=== PATIENT | female | born 1975 | race African-American/Black ===

== ENCOUNTER 2017-03-15 15:55 | Emergency (ER) | payer OTHER, MEDICAID ==
[~2017-03-15] VITALS: Ht 167.6 cm; Wt 69.0 kg
[2017-03-15] MEDS ORDERED: FENTANYL CITRATE/PF 50MCG/ML 2ML VIAL IV ONE (19:00)
[2017-03-15] MEDS ORDERED: SODIUM CHLORIDE 0.9% 1,000 ML IV ONE (19:00)
[2017-03-15] MEDS ORDERED: ONDANSETRON HCL 4MG/2ML VIAL IV STA (19:00)
[2017-03-15 20:22] LABS: BASOPHILS % 0.3 % (0.0-2.0); EOSINOPHILS % 0.1 % (0.0-5.0); HEMATOCRIT. 40.4 % (36.0-48.0); HEMOGLOBIN. 13.6 g/dL (12.0-16.0); LYMPHOCYTES % 57.1 % (20.0-50.0); MEAN CORPUSCULAR HEMOGLOBIN 31.1 pg (28.0-32.0); MEAN CORPUSCULAR VOLUME 92.5 fL (81.0-99.0); MEAN PLATELET VOLUME 7.3 fl (7.4-10.4); MONOCYTES % 9.8 % (2.0-8.0); NEUTROPHILS % 32.7 % (40.0-76.0); PLATELET 317 x1000/uL (130-400); RED BLOOD CELL COUNT 4.37 mill/uL (4.2-5.4); RED CELL DISTRIBUTION WIDTH 15.8 % (11.6-14.6)
[2017-03-15 20:29] LABS: PROTHROMBIN TIME 10.2 sec (9.4-11.6)
[2017-03-15 20:32] LABS: HCG SCREEN NEGATIVE
[2017-03-15 20:34] LABS: CHLORIDE 104 mEq/L (98-107)
[2017-03-15 20:39] LABS: ETHANOL BLOOD 204 mg/dL
[2017-03-15 20:42] LABS: TROPONIN I < 0.02 ng/mL (0.00-0.04)
[2017-03-15] MEDS ORDERED: DEXTROSE 50% WATER 50ML SYRINGE IV ONE (21:00)
[2017-03-16 00:29] LABS: CLARITY URINE CLOUDY (CLEAR); COLOR URINE YELLOW (YELLOW); KETONES URINE 1+ (NEGATIVE); LEUKOCYTE ESTERASE URINE TRACE (NEGATIVE); NITRITE URINE NEGATIVE (NEGATIVE); OCCULT BLOOD URINE NEGATIVE (NEGATIVE); PROTEIN URINE NEGATIVE (NEGATIVE); UROBILINOGEN URINE 0.2 E.U./dL (0.2-1.0)
[2017-03-16] MEDS ORDERED: IOHEXOL-350 100 ML BOTTLE ONE (01:34)
[2017-03-16 02:30] VITALS: BP 156/76
== END 2017-03-16 02:47 | disposition home or self-care (01) ==
LOC: ER 16:16
DX: F10.129 Alcohol abuse with intoxication, unspecified (principal); D72.819 Decreased white blood cell count, unspecified; R07.9 Chest pain, unspecified; I10 Essential (primary) hypertension; F17.200 Nicotine dependence, unspecified, uncomplicated; Z88.5 Allergy status to narcotic agent; Y90.7 Blood alcohol level of 200-239 mg/100 ml
CPT/HCPCS: 36415; 70450; 71045; 71275; 74174; 80053; 81001; 82962; 83880; 84484; 84703; 85025; 85610; 87804; 93005; 96361; 96374; 96375; 99285; G0482; J2405; J3010; J7030; Q9967